=== PATIENT | male | born 1955 | race American Indian/Alaskan Native ===

== ENCOUNTER 2018-02-25 18:12 | Emergency (ER) | payer SELFPAY ==
[~2018-02-25 18:12] MED LIST: AMIDATE IV ONE; QUELICIN ONE
[2018-02-25] MEDS ORDERED: BENADRYL ONE (18:56)
[2018-02-25] MEDS ORDERED: BENADRYL IV ONE (19:08)
[2018-02-25] MEDS ORDERED: NACL 0.9% 1000 ML 1,000 ML ONE (19:15)
[2018-02-25] MEDS ORDERED: DIPRIVAN 10 MG/ML 1,000 MG/100 ML BOTTLE IV ONE (20:12)
--- NOTE | 2018-02-25 20:16 | Emergency Department Report ---
ED ENT HPI - General Chief complaint: Sore Throat Stated complaint: SORE THROAT Time Seen by Provider: 02/25/18 19:00 Source: patient Mode of arrival: Ambulatory Limitations: No Limitations - History of Present Illness MD complaint: sore throat, difficulty swallowing -: Gradual, days(s) (1) Severity: moderate Severity scale (0 -10): 7 Consistency: constant Improves with: none Worsens with: swallowing - Related Data Allergies Allergy/AdvReac Type Severity Reaction Status Date / Time No Known Allergies Allergy Unverified 02/25/18 19:08 ED Dental HPI - General Chief complaint: Sore Throat Stated complaint: SORE THROAT Time Seen by Provider: 02/25/18 19:40 Source: patient Mode of arrival: Ambulatory Limitations: No Limitations - History of Present Illness MD complaint: tooth pain Severity: severe Consistency: constant Improves with: none Worsens with: swallowing, position, eating, chewing, hot/cold liquids Context- Dental: history of dental caries, poor dental care - Related Data Allergies Allergy/AdvReac Type Severity Reaction Status Date / Time No Known Allergies Allergy Unverified 02/25/18 19:08 ED Review of Systems ROS: Stated complaint: SORE THROAT Other details as noted in HPI Comment: All other systems reviewed and negative Constitutional: denies: chills, fever Eyes: denies: eye pain, eye discharge, vision change ENT: throat pain. denies: ear pain Respiratory: denies: cough, shortness of breath, wheezing Cardiovascular: denies: chest pain, palpitations Endocrine: no symptoms reported Gastrointestinal: denies: abdominal pain, nausea, diarrhea Genitourinary: denies: urgency, dysuria Musculoskeletal: denies: back pain, joint swelling, arthralgia Skin: denies: rash, lesions Neurological: denies: headache, weakness, paresthesias Psychiatric: denies: anxiety, depression Hematological/Lymphatic: denies: easy bleeding, easy bruising ED Past Medical Hx - Past Medical History Hx Hypertension: Yes - Surgical History Past Surgical History?: Yes Additional Surgical History: left rotator cuff, 3 knee cartilage repairs to left knee and 2 right knee cartilage repairs - Social History Smoking Status: Current Every Day Smoker Substance Use Type: Alcohol ED Physical Exam - General Limitations: No Limitations General appearance: alert, in no apparent distress - Head Head exam: Present: atraumatic, normocephalic - Eye Eye exam: Present: normal appearance - ENT ENT exam: Present: mucous membranes moist - Expanded ENT Exam Expanded Throat exam: Positive: tonsillar erythema, R peritonsillar mass - Neck Neck exam: Present: normal inspection, tenderness, lymphadenopathy - Respiratory Respiratory exam: Present: normal lung sounds bilaterally. Absent: respiratory distress - Cardiovascular Cardiovascular Exam: Present: regular rate, normal rhythm. Absent: systolic murmur, diastolic murmur, rubs, gallop - GI/Abdominal GI/Abdominal exam: Present: soft, normal bowel sounds - Rectal Rectal exam: Present: deferred - Extremities Exam Extremities exam: Present: normal inspection - Back Exam Back exam: Present: normal inspection - Neurological Exam Neurological exam: Present: alert, oriented X3 - Psychiatric Psychiatric exam: Present: normal affect, normal mood - Skin Skin exam: Present: warm, dry, intact, normal color. Absent: rash ED Course Vital Signs 02/25/18 18:36 Temperature 98.4 F Pulse Rate 83 Respiratory 20 Rate Blood Pressure 190/75 O2 Sat by Pulse 100 Oximetry - Reevaluation(s) Reevaluation #1: 02/25/18 20:16 Patient deteriorated quickly while resting in bed. He yelled that he couldn't breathe - swelling worse. Patient was moved to a trauma room and intubation was necessary. One unsuccessful intubation with Glidescope; Dr. Soriano performed second attempt with bougie - successful. Vitals signs of patient normal after intubation, CO2 indicator with + color change; air movement bilateral on auscultation. Await call back from [facility] re ENT on-call so that patient can be transferred. - Intubation Time Out Performed: Yes Sedative: Etomidate Paralytic: Succinylcholine Laryngoscope: fiberoptic video scope Size: 3 Assist Device Used: Bougie ET Tube Size: 8 Tube Secured Depth (cm): 24 Tube Secured Location: lips Tube Placement Confirmation: visualized tube passing t, equal breath sounds bilat Patient Tolerated Procedure: well Intubation Complications: difficult intubation Critical care attestation.: If time is entered above; I have spent that time in minutes in the direct care of this critically ill patient, excluding procedure time. ED Disposition Clinical Impression: Peritonsillar abscess, Acute airway obstruction Disposition: DC/TX-70 ANOTHER TYPE HLTHCARE Is pt being admited?: No Condition: Stable
[2018-02-25] MEDS ORDERED: ARTIFICIAL TEARS OPHTH OINT OU PRN (20:39)
[2018-02-25] MEDS ORDERED: VASELINE LIP THERAPY TP PRN ×2 (20:39→20:54)
[2018-02-25] MEDS ORDERED: fentaNYL DRIP Premix 2,000 MCG/100 ML BAG IV SCH (21:00)
[2018-02-25] MEDS ORDERED: NACL 0.9% 500 ML IV SCH (21:00)
[2018-02-25] MEDS ORDERED: DIPRIVAN 10 MG/ML 1,000 MG/100 ML BOTTLE IV SCH (21:00)
[2018-02-25] MEDS ORDERED: CLEOCIN 900 MG/50 mL 900 MG/50 ML BAG IV ONE (21:00)
[2018-02-25 21:04] LABS: Basophils # (Auto) 0.1 K/mm3 (0.0-0.1); Basophils % (Auto) 0.6 % (0.0-1.8); Eosinophils # (Auto) 0.1 K/mm3 (0.0-0.4); Eosinophils % (Auto) 0.7 % (0.0-4.3); Hematocrit 44.8 % (35.5-45.6); Hemoglobin 14.6 gm/dl (11.8-15.2); Lymphocytes % (Auto) 7.3 % (13.4-35.0); Mean Corpuscular HGB Conc 33 % (32-34); Mean Corpuscular Hemoglobin 34 pg (28-32); Mean Corpuscular Volume 103 fl (84-94); Monocytes # (Auto) 0.4 K/mm3 (0.0-0.8); Platelet Count 397 K/mm3 (140-440); Red Blood Count 4.36 M/mm3 (3.65-5.03); Red Cell Distribution Width 15.4 % (13.2-15.2)
[2018-02-25 21:15] LABS: BUN/Creatinine Ratio 12; Blood Urea Nitrogen 11 mg/dL (9-20); Calcium 8.9 mg/dL (8.4-10.2); Hemolysis Index 14
[2018-02-25 21:51] LABS: ABG Base Excess -1.5 mmol/L (-2.0-3.0); ABG HCO3 25.3 mmol/L (20.0-26.0); ABG Methemoglobin 0.5 % (0.0-1.5); ABG Oxygen Saturation 98.5 % (95.0-99.0); ABG PCO2 50.9 mm Hg; ABG PH 7.315 pH Units (7.350-7.450); ABG PO2 137.6 mm Hg (80.0-90.0)
--- NOTE | 2018-02-25 21:52 | XRay Report ---
FINAL REPORT EXAM: XR CHEST 1V AP HISTORY: Post-intubation TECHNIQUE: upright single view chest PRIORS: None. FINDINGS: Cardiac and mediastinal contours are unremarkable. No focal pulmonary infiltrate is identified. No pleural fluid collection seen. Pulmonary vasculature is unremarkable. ET tube present. Tip is just above the kalie the origin of the right main bronchus suggest pullback approximately 2 centimeters. IMPRESSION: ET tube is somewhat low just at the origin of the right main bronchus. Suggest pull back 2 centimeters No acute pulmonary findings
[2018-02-25] MEDS ORDERED: VERSED IV ONE (21:53)
--- NOTE | 2018-02-25 22:45 | Emergency Department Report ---
HPI - General Chief Complaint: Sore Throat Time Seen by Provider: 02/25/18 19:00 - HPI HPI: I assumed care of Mr. Arreguin after intubation by Dr. Hurt and Dr. Soriano. I was informed by my colleaguethat Mr. Roque developed severe respiratory distress then syncope requiring ventilation with bag valve mask. My colleague viewed a Peritonsillar abscess on the right. I spoke with the who stated that he's had sore throat and difficulty swallowing prior to arrival. The nurse and physician noted muffled voice. I managed ventilator alongside respiratory therapist. Patient required propofol and Versed for sedation. He also required additional fentanyl drip infusion. I spoke with the transfer center for [facility]. After multiple attempts in approximately 90 minutes, ENT was unavailable. Spoke with [facility] transfer center nurse. I spoke with ENT Dr. Gandhi who accepted the patient. I spoke with ICU physician Dr. Vu sports fitness and wellness director who accepted the patient to [facility]. Final diagnosis. Peritonsillar abscess, acute respiratory failure 40 minutes of critical care time excluding were used in the care of the patient. Interventions include ventilator management, sedation, review of electronic record, review of lab work. Multiple assessments. I spoke extensively with the who is bedside. I kept the nursing staff and family updated. Th ED Past Medical Hx - Past Medical History Hx Hypertension: Yes - Surgical History Past Surgical History?: Yes Additional Surgical History: left rotator cuff, 3 knee cartilage repairs to left knee and 2 right knee cartilage repairs - Social History Smoking Status: Current Every Day Smoker Substance Use Type: Alcohol ED Review of Systems ROS: Stated complaint: SORE THROAT Other details as noted in HPI Constitutional: denies: chills, fever Eyes: denies: eye pain, eye discharge, vision change ENT: throat pain. denies: ear pain Respiratory: denies: cough, shortness of breath, wheezing Cardiovascular: denies: chest pain, palpitations Endocrine: no symptoms reported Gastrointestinal: denies: abdominal pain, nausea, diarrhea Genitourinary: denies: urgency, dysuria Musculoskeletal: denies: back pain, joint swelling, arthralgia Skin: denies: rash, lesions Neurological: denies: headache, weakness, paresthesias Psychiatric: denies: anxiety, depression Hematological/Lymphatic: denies: easy bleeding, easy bruising Physical Exam - Physical Exam Vital Signs: Vital Signs 02/25/18 02/25/18 18:36 20:00 Temperature 98.4 F Pulse Rate 83 89 Respiratory 20 Rate Blood Pressure 190/75 O2 Sat by Pulse 100 99 Oximetry ED Course Vital Signs 02/25/18 02/25/18 18:36 20:00 Temperature 98.4 F Pulse Rate 83 89 Respiratory 20 Rate Blood Pressure 190/75 O2 Sat by Pulse 100 99 Oximetry ED Medical Decision Making - Lab Data Result diagrams: 02/25/18 20:50 02/25/18 20:50 Critical care attestation.: If time is entered above; I have spent that time in minutes in the direct care of this critically ill patient, excluding procedure time. ED Disposition Clinical Impression: Acute airway obstruction, Peritonsillar abscess, Acute respiratory failure Disposition: DC/TX-70 ANOTHER TYPE HLTHCARE Is pt being admited?: No Does the pt Need Aspirin: No Condition: Stable Time of Disposition: 22:30
[2018-02-25] MEDS ORDERED: VERSED IV NR (23:45)
--- NOTE | 2018-02-25 23:49 | Cat Scan Report ---
FINAL REPORT EXAM: CT Neck w Contrast CLINICAL INDICATIONS: AIRWAY COMPROMISE, SOFT TISSUE INFECTION, INTUBATED FINDINGS: Contrast-enhanced CT of the neck was performed and data was reformatted into the sagittal and coronal planes. There is an endotracheal tube, which appears to extend minimally into the right mainstem bronchus. Its inferior extent is not included on the axial images for the examination but on the localizer does appear to extend minimally into the right mainstem bronchus. This could be withdrawn approximately 3 cm to the level of the mid trachea. There is enlargement of the tonsils bilaterally which does appear to result in significant airway narrowing. No patent airway is seen around the endotracheal tube in the upper pharynx. There is no abscess identified. The epiglottis is anteriorly displaced by the endotracheal tube and appears unremarkable. There is a nasogastric tube which terminates in the upper esophagus. There is stranding around the submandibular glands and within the subcutaneous tissues of the left upper neck which could represent cellulitis. No abscess is seen. There is calcification in the right carotid bulb and proximal internal carotid artery resulting in short-segment estimated 30% stenosis. There is calcification in the left carotid bulb and proximal internal carotid artery resulting in a short segment estimated 20% stenosis. The right vertebral artery is patent. The inferior aspect of the left vertebral artery is not seen and is likely occluded. Trace flow is seen in the superior aspect of the left vertebral artery which could be retrograde flow from the basilar artery. There is dependent consolidation in the posterior aspects of both left upper lobe and right upper lobe likely atelectasis. IMPRESSION: THE ENDOTRACHEAL TUBE IS LOW AND LIKELY EXTENDS MINIMALLY INTO THE RIGHT MAINSTEM BRONCHUS THE NASOGASTRIC TUBE TERMINATES IN THE UPPER ESOPHAGUS OCCLUSION OF LEFT VERTEBRAL ARTERY This report was called to Dr. Soriano (Ph. [phone]) at approximately 02/25/2018 11:44 PM.
[2018-02-26 00:55] VITALS: BP 108/56
== END 2018-02-26 01:22 | disposition other institution (70) ==
LOC: ED 18:12
DX: J36 Peritonsillar abscess (principal); J98.8 Other specified respiratory disorders; I10 Essential (primary) hypertension; F17.200 Nicotine dependence, unspecified, uncomplicated
CPT/HCPCS: 31500; 36415; 70491; 71045; 80048; 82803; 85025; 87040; 87070; 87205; 96365; 96366; 96368; 96375; 99291; J0330; J1200; J2250; J2704; J2930; J3010; J7030; Q9967; 94002